=== PATIENT | male | born 1985 | race Caucasian/White ===

== ENCOUNTER 2016-11-28 04:09 | Emergency (ER) | payer OTHER ==
[~2016-11-28] VITALS: Ht 170.2 cm; Wt 144.0 kg
[2016-11-28 04:12] VITALS: TEMP 36.7; O2SAT 93; Ht 170.2 cm; Wt 144.0 kg
[2016-11-28] MEDS ORDERED: NAPR1TAB9 PO (04:37)
[2016-11-28] MEDS ORDERED: VNTHFA/IN INH (04:38)
--- NOTE | 2016-11-28 04:45 | EMERGENCY ROOM VISIT NOTE ---
History Report prepared by [place]: Archie Lowe Under the Supervision of: Dr. Kemar Franklin M.D. First contact with patient: 04:17 Chief Complaint: WRIST PAIN Stated Complaint: PAIN IN LEFT WRIST History of Present Illness The patient is a 31 year old male who presents to the Emergency Room with complaints of persistent left wrist pain for the past 2.5 - 3 weeks. The pain is rated 5/10 in severity and is worse when grasping with the left hand. He has been wearing a splint which does help. He has not noticed any significant redness or swelling. He denies any fevers. The patient went to a [facility] urgent care clinic where he was diagnosed with tendonitis. He was told to start Naproxen which he yet to do. The patient followed up at his PCP's office, where he was prescribed Prednisone which he did not start also. 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 Source of History: patient Onset: 2.5 to 3 weeks Position: wrist (left) Symptom Intensity: 5/10 Timing: other (persistent) Modifying Factors (Worsening): other (grasping) Modifying Factors (Relieving): other (splint) Associated Symptoms: No fevers Review of Systems See HPI for pertinent positives & negatives. A total of 6 systems reviewed and were otherwise negative. Past Medical & Surgical Medical Problems: (1) Abdominal pain (2) Abdominal pain, acute (3) Asthma (4) Biliary colic (5) Bronchitis (6) Cholecystitis chronic, acute (7) Chronic back pain (8) Concussion (9) Corneal foreign body (10) Decreased hearing (11) Ingrowing toenail with infection (12) Ingrowing toenail with infection (13) Paresthesia of right upper limb (14) Paresthesia of right upper limb (15) Pneumonia (16) Puncture wound of right foot (17) Right shoulder injury (18) Right shoulder injury (19) Right shoulder injury (20) Right shoulder injury (21) Right sided abdominal pain (22) Right sided abdominal pain (23) Vomiting Family History Diabetes mellitus FHx: cancer FHx: heart disease Hypertension Social History Smoking Status: Current Every Day Smoker Alcohol Use: none Drug Use: none Marital Status: Housing Status: lives with family Occupation Status: employed Current/Historical Medications Scheduled PRN Albuterol Hfa (Ventolin Hfa), 2-4 PUFFS INH Q6H PRN for SOB/Wheezing Naproxen (Aleve), 440 MG PO Q12 PRN for Pain Allergies Coded Allergies: Aspirin (Unverified Allergy, Severe, Throat swelling, 02/17/16) Physical Exam Vital Signs Date Time Temp Pulse Resp B/P Pulse Ox O2 Delivery O2 Flow Rate FiO2 11/28/16 05:11 89 148/91 11/28/16 04:12 36.7 80 20 141/93 93 Room Air Physical Exam GENERAL: Patient is uncomfortable appearing and in mild distress. HEENT: No acute trauma, normocephalic atraumatic, mucous membranes moist, no nasal congestion, no scleral icterus. NECK: No stridor, no adenopathy, no meningismus, trachea is midline. LUNGS: No dyspnea. Clear to auscultation and equal bilaterally. No wheeze, no rhonchi. HEART: Regular rate and rhythm. No murmurs, rubs, gallops appreciated. EXTREMITIES: Tender to palpation over the left wrist at the base of the first metacarpal, mild pain with range of motion, no swelling or erythema, no other joint tenderness, distal NV intact. NEUROLOGIC: Alert and oriented, no acute motor or sensory deficits, no focal weakness, cranial nerves grossly intact. SKIN: No rash, no jaundice, no diaphoresis. Medical Decision & Procedures Medications Administered Medications (Trade) Dose Ordered Sig/Woo Route Start Time Stop Time Status Last Admin Dose Admin Famotidine (Pepcid Tab) 20 mg NOW ONCE PO 11/28/16 05:00 11/28/16 05:01 DC 11/28/16 05:07 20 MG Prednisone (PredniSONE TAB) 60 mg STK-MED ONCE .ROUTE 11/28/16 05:11 11/28/16 05:12 DC 11/28/16 05:07 60 MG ED Course 0420: The patient was evaluated by my resident, Dr. Giovani Gilliland. 0440: The patient was evaluated in room B9. A complete history and physical exam was performed. 0500: Famotidine 20 mg PO, Prednisone 60 mg PO. 0500: Dr. Gilliland discussed the discharge instructions with the patient. Medical Decision Differential: Fracture, Dislocation, Cellulitis, Septic Joint, Ligamentous Injury, Effusion, DVT, amongst other pathologies entertained. 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 Has yet to start anti-inflammatories prescribed to him. Left work due to pain he is having. No evidence septic joint nor infection at this time. Exam consistent with policis tendon inflammation. Advised he should be taking his daily anti-acid, especially if on prednisone with his GERD history. Discussed symptoms requiring RTED. Off work next 72 hours to try and let inflammation go down and stressed taking his prednisone. Impression Primary Impression: Wrist pain, left Scribe Attestation The scribe's documentation has been prepared under my direction and personally reviewed by me in its entirety. I confirm that the note above accurately reflects all work, treatment, procedures, and medical decision making performed by me. Departure Information Dispostion Home / Self-Care Referrals Nasir Ward M.D. (PCP) Forms HOME CARE DOCUMENTATION FORM, IMPORTANT VISIT INFORMATION, WORK / SCHOOL INSTRUCTIONS Patient Instructions My [facility]
[2016-11-28] MEDS ORDERED: FAMOTIDINE 20 MG TAB PO ONE (05:00)
[2016-11-28 05:11] VITALS: BP 148/91; PULSE 89
--- NOTE | 2016-11-28 05:20 | EMERGENCY ROOM VISIT NOTE ---
History First contact with patient: 04:17 (Giovani Gilliland MD) First contact with patient: 04:17 (Kemar Franklin M.D.) Chief Complaint: WRIST PAIN Stated Complaint: PAIN IN LEFT WRIST History of Present Illness The patient is a 31 year old male who presents to the Emergency Room with complaints of Left sided wrist pain x 2.5- 3 wks. Pain is worse with grasping. He denies Hx of injury. 11/17 , patient went to [facility], was diagnosed with Tendinitis and sent home with Naproxen however patient did not take the medication as of yet. Patient subsequently saw PCP for second opinion. He saw a PA who placed him on prednisone and a wrist splint, however he has not filled the prescription. Patient is requesting a doctor's note for missing work. (Giovani Gilliland MD) Review of Systems See HPI for pertinent positives & negatives. A total of 10 systems reviewed and were otherwise negative. (Giovani Gilliland MD) Past Medical/Surgical History Medical Problems: (1) Abdominal pain (2) Abdominal pain, acute (3) Asthma (4) Biliary colic (5) Bronchitis (6) Cholecystitis chronic, acute (7) Chronic back pain (8) Concussion (9) Corneal foreign body (10) Decreased hearing (11) Ingrowing toenail with infection (12) Ingrowing toenail with infection (13) Paresthesia of right upper limb (14) Paresthesia of right upper limb (15) Pneumonia (16) Puncture wound of right foot (17) Right shoulder injury (18) Right shoulder injury (19) Right shoulder injury (20) Right shoulder injury (21) Right sided abdominal pain (22) Right sided abdominal pain (23) Vomiting (Kemar Franklin M.D.) Family History Diabetes mellitus FHx: cancer FHx: heart disease Hypertension (Giovani Gilliland MD) Diabetes mellitus FHx: cancer FHx: heart disease Hypertension (Kemar Franklin M.D.) Social History Smoking Status: Current Every Day Smoker Alcohol Use: none Drug Use: none Marital Status: Housing Status: lives with family Occupation Status: employed (Giovani Gilliland MD) Current/Historical Medications Scheduled PRN Albuterol Hfa (Ventolin Hfa), 2-4 PUFFS INH Q6H PRN for SOB/Wheezing Naproxen (Aleve), 440 MG PO Q12 PRN for Pain Allergies Coded Allergies: Aspirin (Unverified Allergy, Severe, Throat swelling, 02/17/16) Physical Exam Vital Signs Date Time Temp Pulse Resp B/P Pulse Ox O2 Delivery O2 Flow Rate FiO2 11/28/16 05:11 89 148/91 11/28/16 04:12 36.7 80 20 141/93 93 Room Air (Kemar Franklin M.D.) Physical Exam GENERAL: alert, well appearing, well nourished, no distress, non-toxic EYE EXAM: normal conjunctiva, PERRL and EOM's grossly intact NECK: supple, no nuchal rigidity, no adenopathy, non-tender LUNGS: Clear to auscultation. Normal chest wall mechanics HEART: no murmurs, S1 normal and S2 normal ABDOMEN: abdomen soft, non-tender, normo-active bowel sounds, no masses, no rebound or guarding. SKIN: no rashes and no bruising UPPER EXTREMITIES: Left hand, tenderness at abductor pollicis longus insertion , tenderness with finger flexion, ulnar/radial deviation, wrist flexion/ extension grasping, no erythema, no swelling LOWER EXTREMITIES: No pitting edema. NEURO EXAM: Normal sensorium, cranial nerves II-XII grossly intact, normal speech, no gross weakness of arms, no gross weakness of legs. 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 Wrist pain -likely secondary to tendonitis -previously prescribed prednisone, naproxen but did not start either medication -Given dose of Prednisone 60 mg PO -Given Pepcid to prevent dyspepsia -Provided physician's note for employer -Patient was discharged home and advised to start home prednisone prescription and naproxen as needed (Giovani Gilliland MD) Resident Physician Supervision Note: Dr. Giovani Gilliland was resident physician during care of patient. I separately evaluated patient and did history and exam. I discussed the case with the resident and generally agree with the findings and plan. Please see my full note on the chart for my complete H&P and assessment. Kemar Franklin MD (Kemar Franklin M.D.) Impression Primary Impression: Wrist pain, left Departure Information Dispostion Home / Self-Care Condition GOOD Forms HOME CARE DOCUMENTATION FORM, Work Instructions, Additional Instructions: PLease excuse on 11/28, 11/29, 11/30. Thank you, Giovani Gilliland M.D. IMPORTANT VISIT INFORMATION Patient Instructions My [facility] Additional Instructions -Take medication as prescribed -Continue wearing wrist splint -Follow up with PCP for ongoing care -Return to Emergency or call clinic if symptoms worsen or do not respond to medication. Work Instructions Additional Work Instructions: PLease excuse on 11/28, 11/29, 11/30. Thank you, Giovani Gilliland M.D. (Giovani Gilliland MD) Resident Tracking Resident Involvement: Resident Care Provided Care Provided: Adult ED (Giovani Gilliland MD)
== END 2016-11-28 05:11 | disposition home or self-care (01) ==
LOC: C.EDB 04:10
DX: M25.532 Pain in left wrist (principal); J45.909 Unspecified asthma, uncomplicated; G89.29 Other chronic pain; F17.200 Nicotine dependence, unspecified, uncomplicated; Z87.820 Personal history of traumatic brain injury; Z87.19 Personal history of other diseases of the digestive system; Z79.82 Long term (current) use of aspirin; Z83.3 Family history of diabetes mellitus; Z80.9 Family history of malignant neoplasm, unspecified; Z82.49 Family history of ischemic heart disease and other diseases of the circulatory system

== ENCOUNTER 2017-03-13 17:53 | Emergency (ER) | payer OTHER ==
[~2017-03-13] VITALS: Ht 170.2 cm; Wt 144.8 kg
[~2017-03-13 17:53] MED LIST: NAPR1TAB9 PO; VNTHFA/IN INH
[2017-03-13 17:55] VITALS: TEMP 36.7; Ht 170.2 cm; Wt 144.8 kg
--- NOTE | 2017-03-13 19:03 | DIAGNOSTIC IMAGING REPORT ---
CHEST ONE VIEW PORTABLE CLINICAL HISTORY: left side chest pain COMPARISON STUDY: 04/05/2014 FINDINGS: The heart is mildly enlarged. There is mild interstitial thickening with a basilar predominance. There is no lobar consolidation. There are no pleural effusions. There is no pneumothorax.[ IMPRESSION: Mild cardiomegaly with mild basilar interstitial thickening. No evidence of lobar consolidation Electronically signed by: Sebastian Rucker M.D. 03/13/2017 7:01 PM Dictated Date/Time: 03/13/2017 7:00 PM
[2017-03-13 19:08] LABS: URINE APPEARANCE TURBID (CLEAR); URINE BILIRUBIN NEG (NEG); URINE COLOR YELLOW; URINE EPITHELIAL CELL AUTO >30 /lpf (0-5); URINE NITRITE NEG (NEG); URINE SPECIFIC GRAVITY 1.026 (1.000-1.030); UROBILINOGEN NEG (NEG); ZZUR CULT IF INDIC CLEAN CATCH NO
[2017-03-13 19:13] LABS: MANUAL MICROSCOPIC REQUIRED? NO; REVIEW REQ? NO
[2017-03-13 19:13] LABS: PROTHROMBIN TIME (PATIENT) 10.7 SECONDS (9.0-12.0)
[2017-03-13 19:18] LABS: BLOOD UREA NITROGEN 13 mg/dl (7-18); BUN/CREATININE RATIO 14.7 (10-20); CALCIUM 9.2 mg/dl (8.5-10.1); CARBON DIOXIDE 30 mmol/L (21-32); CHLORIDE 107 mmol/L (98-107); CREATININE 0.88 mg/dl (0.60-1.40); GLUCOSE 86 mg/dl (70-99); POTASSIUM 4.2 mmol/L (3.5-5.1); SODIUM 140 mmol/L (136-145); URIC ACID 6.1 mg/dl (2.6-7.2)
[2017-03-13 19:23] LABS: BASO % 0.5 %; BASO ABS # 0.04 K/uL (0-0.2); COMPLETE YES; EOS % 10.5 %; HEMATOCRIT 45.7 % (42-52); IG% 0.3 %; LYMPH % 34.9 %; MEAN CELL VOLUME 88.7 fL (80-100); MEAN CORPUSCULAR HEMOGLOBIN 29.3 pg (25-34); MEAN PLATELET VOLUME 10.2 fL (7.4-10.4); MONO % 7.4 %; NEUT % 46.4 %; PLATELET COUNT 283 K/uL (130-400); RED BLOOD COUNT 5.15 M/uL (4.7-6.1); WHITE BLOOD COUNT 7.73 K/uL (4.8-10.8)
[2017-03-13 19:26] LABS: ALB/GLOB RATIO 0.9 (0.9-2); ALKALINE PHOSPHATASE 116 U/L (45-117); ALT/SGPT 39 U/L (12-78); AST/SGOT 18 U/L (15-37); CKMB/CK RATIO 1.1 (0-3.0)
--- NOTE | 2017-03-13 19:40 | DIAGNOSTIC IMAGING REPORT ---
ULTRASOUND VENOUS DOPPLER LWR EXT BILA CLINICAL HISTORY: Bilateral lower extremity pain and swelling COMPARISON STUDY: No previous studies for comparison. FINDINGS: Real-time and color flow Doppler imaging were performed. Flow was seen within the femoral, popliteal and calf veins with no intraluminal thrombus demonstrated. The saphenous vein is patent. IMPRESSION: No evidence of lower extremity DVT. Electronically signed by: Sebastian Rucker M.D. 03/13/2017 7:39 PM Dictated Date/Time: 03/13/2017 7:39 PM
--- NOTE | 2017-03-13 19:55 | EMERGENCY ROOM VISIT NOTE ---
History First contact with patient: 18:17 Chief Complaint: EDEMA TO EXTREMITY Stated Complaint: SORE, SWOLLEN ANKLES, RASH ON BILATERAL LEGS History of Present Illness The patient is a 31 year old male who presents to the Emergency Room with complaints of leg pain and swelling. The patient states that he works at the [place] and is on his feet all day. He states that approximately 1.5 weeks ago he noticed swelling and a rash to the left leg. He states the rash was itchy and he applied calamine lotion. He states he noticed a rash to the right leg approximately one week ago. He states that when the rash is at its worst it is bright, red and warm and itchy. The patient states that the redness has slightly improved but his ankle seemed to be swollen. The left is more swollen than right. He rates his discomfort a 3/10. He states that he has also had some left-sided chest wall pain. He states he attributes this to smoking. He has had some shortness of breath. He denies any fevers. He denies any earache , sore throat or cough. He denies chest pain. He denies any abdominal pain, nausea or vomiting. He denies any personal or family history of DVT or PE. Review of Systems A 10 system review of systems was completed with positives and pertinent negatives listed in the HPI. Past Medical/Surgical History Medical Problems: (1) Abdominal pain (2) Abdominal pain, acute (3) Asthma (4) Biliary colic (5) Bronchitis (6) Cholecystitis chronic, acute (7) Chronic back pain (8) Concussion (9) Corneal foreign body (10) Decreased hearing (11) Ingrowing toenail with infection (12) Ingrowing toenail with infection (13) Paresthesia of right upper limb (14) Paresthesia of right upper limb (15) Pneumonia (16) Puncture wound of right foot (17) Right shoulder injury (18) Right shoulder injury (19) Right shoulder injury (20) Right shoulder injury (21) Right sided abdominal pain (22) Right sided abdominal pain (23) Vomiting Family History Diabetes mellitus FHx: cancer FHx: heart disease Hypertension Social History Smoking Status: Current Every Day Smoker Alcohol Use: none Drug Use: none Marital Status: Housing Status: lives with family Occupation Status: employed Current/Historical Medications Scheduled Cephalexin Monohydrate (Keflex), 500 MG PO QID Scheduled PRN Albuterol Hfa (Ventolin Hfa), 2-4 PUFFS INH Q6H PRN for SOB/Wheezing Naproxen (Aleve), 440 MG PO Q12 PRN for Pain Physical Exam Vital Signs Date Time Temp Pulse Resp B/P (MAP) Pulse Ox O2 Delivery O2 Flow Rate FiO2 03/13/17 20:23 60 18 127/79 96 03/13/17 20:21 60 18 127/79 96 Room Air 03/13/17 17:55 36.7 80 20 140/92 94 Room Air Physical Exam VITALS: Vitals are noted on the nurse's note and reviewed by myself. Vital signs stable. GENERAL: This is a 31-year-old male, in no acute distress, nondiaphoretic, well- developed well-nourished. SKIN: There is bilateral lower extremity edema, left greater than right. It is approximately 2+ pitting edema in the left ankle. There is very faint erythema to the left lower extremity. There is no significant calf tenderness or palpable cord. Capillary reflex less than 2 seconds. HEAD: Normocephalic atraumatic. EARS: The external ears are normal in appearance. EYES: Pupils equal round and reactive to light and accommodation. Conjunctivae without injection, sclerae without icterus. Extraocular movements intact. NOSE: Patent, turbinates without inflammation or discharge. MOUTH: Mucous membranes moist. Tonsils are not enlarged. Pharynx without erythema or exudate. Uvula midline. Airway patent. Tongue does not deviate. NECK: Supple without nuchal rigidity. No lymphadenopathy. No thyromegaly. Cervical spine is nontender. No JVD. HEART: Regular rate and rhythm without murmurs gallops or rubs. LUNGS: Clear to auscultation bilaterally without wheezes, rales or rhonchi. No retractions or accessory muscle use. MUSCULOSKELETAL: Full range of motion without joint tenderness in all extremities. No tenderness to palpation. Normal gait. Strength 5/5 throughout. NEURO: Patient was alert and oriented to person place and time. No focal neurological deficits. Medical Decision & Procedures ER Provider Diagnostic Interpretation: CHEST ONE VIEW PORTABLE CLINICAL HISTORY: left side chest pain COMPARISON STUDY: 04/05/2014 FINDINGS: The heart is mildly enlarged. There is mild interstitial thickening with a basilar predominance. There is no lobar consolidation. There are no pleural effusions. There is no pneumothorax.[ IMPRESSION: Mild cardiomegaly with mild basilar interstitial thickening. No evidence of lobar consolidation ULTRASOUND VENOUS DOPPLER LWR EXT BILA CLINICAL HISTORY: Bilateral lower extremity pain and swelling COMPARISON STUDY: No previous studies for comparison. FINDINGS: Real-time and color flow Doppler imaging were performed. Flow was seen within the femoral, popliteal and calf veins with no intraluminal thrombus demonstrated. The saphenous vein is patent. IMPRESSION: No evidence of lower extremity DVT. Laboratory Results 03/13/17 18:41 Red Blood Count 5.15, Mean Corpuscular Volume 88.7, Mean Corpuscular Hemoglobin 29.3, Mean Corpuscular Hemoglobin Concent 33.0, Mean Platelet Volume 10.2, Neutrophils (%) (Auto) 46.4, Lymphocytes (%) (Auto) 34.9, Monocytes (%) (Auto) 7.4, Eosinophils (%) (Auto) 10.5, Basophils (%) (Auto) 0.5, Neutrophils # (Auto ) 3.59, Lymphocytes # (Auto) 2.70, Monocytes # (Auto) 0.57, Eosinophils # (Auto ) 0.81, Basophils # (Auto) 0.04 03/13/17 18:40 Test 03/13/17 18:40 03/13/17 18:41 Urine Color YELLOW Urine Appearance TURBID (CLEAR) Urine pH 8.0 (4.5-7.5) Urine Specific Tyler 1.026 (1.000-1.030) Urine Protein NEG (NEG) Urine Glucose (UA) NEG (NEG) Urine Ketones NEG (NEG) Urine Occult Blood NEG (NEG) Urine Nitrite NEG (NEG) Urine Bilirubin NEG (NEG) Urine Urobilinogen NEG (NEG) Urine Leukocyte Esterase NEG (NEG) Urine WBC (Auto) 1-5 /hpf (0-5) Urine RBC (Auto) 0-4 /hpf (0-4) Urine Hyaline Casts (Auto) 1-5 /lpf (0-5) Urine Epithelial Cells (Auto) >30 /lpf (0-5) Urine Bacteria (Auto) NEG (NEG) Anion Gap 3.0 mmol/L (3-11) Est Creatinine Clear Calc Drug Dose 164.8 ml/min Estimated GFR () 130.8 Estimated GFR (Non- 112.9 BUN/Creatinine Ratio 14.7 (10-20) Uric Acid 6.1 mg/dl (2.6-7.2) Calcium Level 9.2 mg/dl (8.5-10.1) Total Bilirubin 0.2 mg/dl (0.2-1) Aspartate Amino Transf (AST/SGOT) 18 U/L (15-37) Alanine Aminotransferase (ALT/SGPT) 39 U/L (12-78) Alkaline Phosphatase 116 U/L (45-117) Total Creatine Kinase 148 U/L (39-308) Creatine Kinase MB 1.7 ng/ml (0.5-3.6) Creatine Kinase MB Ratio 1.1 (0-3.0) Troponin I < 0.015 ng/ml (0-0.045) C-Reactive Protein 2.20 mg/dl (0-0.29) Total Protein 7.4 gm/dl (6.4-8.2) Albumin 3.5 gm/dl (3.4-5.0) Globulin 3.9 gm/dl (2.5-4.0) Albumin/Globulin Ratio 0.9 (0.9-2) White Blood Count 7.73 K/uL (4.8-10.8) Red Blood Count 5.15 M/uL (4.7-6.1) Hemoglobin 15.1 g/dL (14.0-18.0) Hematocrit 45.7 % (42-52) Mean Corpuscular Volume 88.7 fL (80-100) Mean Corpuscular Hemoglobin 29.3 pg (25-34) Mean Corpuscular Hemoglobin Concent 33.0 g/dl (32-36) Platelet Count 283 K/uL (130-400) Mean Platelet Volume 10.2 fL (7.4-10.4) Neutrophils (%) (Auto) 46.4 % Lymphocytes (%) (Auto) 34.9 % Monocytes (%) (Auto) 7.4 % Eosinophils (%) (Auto) 10.5 % Basophils (%) (Auto) 0.5 % Neutrophils # (Auto) 3.59 K/uL (1.4-6.5) Lymphocytes # (Auto) 2.70 K/uL (1.2-3.4) Monocytes # (Auto) 0.57 K/uL (0.11-0.59) Eosinophils # (Auto) 0.81 K/uL (0-0.5) Basophils # (Auto) 0.04 K/uL (0-0.2) RDW Standard Deviation 46.1 fL (36.4-46.3) RDW Coefficient of Variation 14.2 % (11.5-14.5) Immature Granulocyte % (Auto) 0.3 % Immature Granulocyte # (Auto) 0.02 K/uL (0.00-0.02) Erythrocyte Sedimentation Rate 31 mm/hr (0-14) Prothrombin Time 10.7 SECONDS (9.0-12.0) Prothromb Time International Ratio 1.0 (0.9-1.1) Activated Partial Thromboplast Time 26.7 SECONDS (21.0-31.0) Partial Thromboplastin Ratio 1.0 D-Dimer 340 ug/L FEU (0-500) Medications Administered Medications (Trade) Dose Ordered Sig/Woo Route Start Time Stop Time Status Last Admin Dose Admin Cephalexin Monohydrate (Keflex 500MG Home Pack) 1 homepack NOW ONCE PO 03/13/17 20:15 03/13/17 20:16 DC 03/13/17 20:24 1 HOMEPACK ECG Indication: chest pain Rate (beats per minute): 59 Rhythm: sinus bradycardia Findings: no acute ischemic change Change: no significant change ED Course The patient was seen and examined. Previous visits were reviewed. The patient does not have a fever or leukocytosis. He does not have any significant electrolyte abnormalities. ESR is mildly elevated at 31 and CRP is elevated at 2.2. He does not have any significant electrolyte abnormality. Troponin was not elevated. Her is not elevated. Chest x-ray reveals mild cardiomegaly. Ultrasound the bilateral lower extremities is negative for DVT The patient presents to the emergency department with lower extremity edema and erythema. I do not suspect pulmonary embolus or DVT at this time. The patient recently started new job in which he is on his feet all day. This may be contributing to the lower extremity edema. He does have some erythema and warmth. He will be started on Keflex for potential cellulitis. He should follow-up with his family doctor next week for recheck, further evaluation and management. He should return with any worsening symptoms, worsening redness, fevers. The case was discussed with Dr. Frost who agrees with the assessment and treatment plan Medical Decision DIFFERENTIAL DIAGNOSIS: Aortic dissection, myocarditis, pericarditis, cervical disc disease, costochondritis, herpes zoster, rib fracture, pleuritis, pneumonia , pulmonary embolus, tension pneumothorax, anxiety disorder, somatoform disorder , choledocholithiasis, status, esophagitis, esophageal spasm, esophageal reflux , esophageal rupture, pancreatitis, peptic ulcer disease, cardiac ischemia, ST elevation CT, acute coronary syndrome, arrhythmia, coronary artery vasospasm. vavular heart disease, coronary artery disease, among others. Medication Reconcilliation Current Medication List: was personally reviewed by me Blood Pressure Screening Patient's blood pressure: Normal blood pressure Blood pressure disposition: Did not require urgent referral Impression Primary Impression: Leg pain Additional Impression: Cellulitis Departure Information Dispostion Home / Self-Care Condition [employer] Prescriptions Cephalexin Monohydrate (Keflex) 500 Mg Cap 500 MG PO QID for 7 Days, #28 CAP Prov: Christin Pagan PA-C 03/13/17 Referrals Nasir Ward M.D. (PCP) Forms HOME CARE DOCUMENTATION FORM, IMPORTANT VISIT INFORMATION, WORK / SCHOOL INSTRUCTIONS Patient Instructions Cellulitis - [facility], [facility] Additional Instructions Keflex as prescribed until finished Return with worsening symptoms, worsening redness, swelling, fevers Otherwise, recheck with your family doctor next week Work Instructions Return To Work: 2 days Problem Qualifiers Primary Impression: Leg pain Laterality: bilateral Qualified Codes: M79.604 - Pain in right leg; M79.605 - Pain in left leg Additional Impression: Cellulitis Site of cellulitis: extremity Site of cellulitis of extremity: lower extremity Laterality: left Qualified Codes: L03.116 - Cellulitis of left lower limb
[2017-03-13] MEDS ORDERED: CEPH500C PO (20:04)
[2017-03-13] MEDS ORDERED: CEPHALEXIN 500MG HOME PACK 1 EA BTL PO ONE (20:15)
[2017-03-13 20:23] VITALS: BP 127/79; PULSE 60; O2SAT 96
== END 2017-03-13 20:23 | disposition home or self-care (01) ==
LOC: C.EDB 17:55 → C.EDD 20:23
DX: M79.604 Pain in right leg (principal); L03.115 Cellulitis of right lower limb; R00.1 Bradycardia, unspecified; J45.909 Unspecified asthma, uncomplicated; Z87.820 Personal history of traumatic brain injury; G89.29 Other chronic pain; F17.200 Nicotine dependence, unspecified, uncomplicated; Z83.3 Family history of diabetes mellitus; Z80.9 Family history of malignant neoplasm, unspecified; Z82.49 Family history of ischemic heart disease and other diseases of the circulatory system

== ENCOUNTER 2017-04-20 12:39 | Emergency (ER) | payer OTHER ==
[~2017-04-20] VITALS: Ht 170.2 cm; Wt 139.0 kg
[2017-04-20 12:42] VITALS: BP 160/110; PULSE 79; TEMP 36.8; O2SAT 97; Ht 170.2 cm; Wt 139.0 kg
== END 2017-04-20 14:15 | disposition left against medical advice (07) ==
LOC: C.EDB 12:40
DX: R51 Headache (principal); R42 Dizziness and giddiness; R11.2 Nausea with vomiting, unspecified; R10.9 Unspecified abdominal pain

== ENCOUNTER 2017-07-31 11:53 | Emergency (ER) | payer OTHER ==
[~2017-07-31] VITALS: Ht 170.2 cm; Wt 132.0 kg
[2017-07-31 11:56] VITALS: TEMP 36.8; Ht 170.2 cm; Wt 132.0 kg
--- NOTE | 2017-07-31 13:35 | DIAGNOSTIC IMAGING REPORT ---
THORACIC SPINE 3 VIEWS ROUTINE HISTORY: Pain LEFT MID BACK/SCAPULAR PAIN COMPARISON: None. FINDINGS: Slight wedge deformity T11 considered old. No subluxation. Mild degenerative disc changes throughout. Mild osteopenia. IMPRESSION: 1. Slight wedge deformity T11 considered old.. 2. Mild degenerative disc change throughout the entire thoracic region. The above report was generated using voice recognition software. It may contain grammatical, syntax or spelling errors. Electronically signed by: Dhaval Landeros M.D. 07/31/2017 1:34 PM Dictated Date/Time: 07/31/2017 1:33 PM
--- NOTE | 2017-07-31 13:38 | DIAGNOSTIC IMAGING REPORT ---
L RIBS UNILATERAL WITH PA CHEST CLINICAL HISTORY: Left-sided rib pain. COMPARISON STUDY: Chest radiograph March 13, 2017. FINDINGS: No pneumothorax or pleural effusion is present. Lungs are clear. Cardiomediastinal silhouette is normal. Pulmonary vascularity is normal. There are no acute left rib fractures. IMPRESSION: No pneumothorax. No acute left rib fractures. Electronically signed by: Dick Ram M.D. 07/31/2017 1:37 PM Dictated Date/Time: 07/31/2017 1:33 PM
[2017-07-31] MEDS ORDERED: CYCL10TA6 PO (13:47)
--- NOTE | 2017-07-31 13:47 | EMERGENCY ROOM VISIT NOTE ---
ED Visit Note First contact with patient: 12:08 CHIEF COMPLAINT: Mid back pain 2 years worse 1 month HISTORY OF PRESENT ILLNESS: Patient is a right-hand dominant 32-year-old white male who presents the emergency department for evaluation of left mid back pain. He has had pain for 2 years. He describes it as a cramping sensation around his left shoulder blade. Initially it only came on him when he was active, and when it was cold. It would go away, then returned. In the last month, he notes the pain is more constant, again is worse with activity, and now it hurts more with pressure when he lays on his back or on his left side. He states that it is located between his left shoulder blade in his spine, wraps around the underside of his shoulder blade towards his left side. It does not radiate into his chest. He denies any anterior chest pain, shortness of breath. He has a chronic cough from smoking. He denies any pleuritic component to the pain. There is no injury to the area that he is aware of. He has tried ice, heat, massage, stretching, and taking Aleve on occasion. He denies any symptoms in the right side. He does not have any midline neck, mid back or low back pain. No urinary symptoms. REVIEW OF SYSTEMS: Review of systems as per HPI. All other systems reviewed were negative. At least 6 systems reviewed. PMH: Electronic medical records are reviewed and summarized as above/below. See Problem List. SOCIAL HISTORY: Patient lives at homeith his family. 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 He smokes one pack of cigarettes daily. PHYSICAL EXAM: Vital Signs: Reviewed Nurse's notes. MENTAL STATUS: Well- appearing 32-year-old white male who is awake and alert and in no acute distress. HEART: Regular rate and rhythm LUNGS: Clear to auscultation SPINE: Examination of the patient's back show normal cervical and lumbar lordosis, thoracic kyphosis. No curvature consistent with scoliosis. He does not have any pain over the spinous processes of the cervical or thoracic spine. He does have some left thoracic paraspinous muscle tenderness without spasm, reproducible on exam. Full range of motion of the neck, mid and low back. Normal gait, upper and lower extremity DTRs are equal and symmetrical bilaterally. Ribs are nontender to palpation. NEUROLOGICAL: Alert, oriented, coherent. PRERL, moves all extremeties well, sensation to touch intact everywhere. CHEST: Non-tender, symmetrical, no retractions. BACK: No tenderness. EMERGENCY DEPARTMENT COURSE: The patient was seen and evaluated as above. He presents with thoracic left-sided back pain that has been several years in duration, worse in the last couple of weeks. There is no pleuritic component, it is reproducible on exam, and therefore felt to be musculoskeletal in nature, as opposed to thoracic or pulmonary. He does not have any radicular symptoms. Chest with rib and thoracic spine x-rays were obtained, and were negative for acute fracture or bony abnormality. Differential diagnoses entertained included thoracic strain, intercostal neuritis, shingles, muscle strain, among others. He was encouraged to apply heat, continue an NSAID, and to take Flexeril as needed for spasms. He was advised to follow-up with his primary care provider for further care and evaluation, as he may benefit from physical therapy or rn medicare. He was discharged home in good condition. Medication reconciliation: I attest that I have personally reviewed the patient' s current medication list. Blood pressure screening : Patient was found to have normal blood pressure on screening and does not require follow-up. L RIBS UNILATERAL WITH PA CHEST CLINICAL HISTORY: Left-sided rib pain. COMPARISON STUDY: Chest radiograph March 13, 2017. FINDINGS: No pneumothorax or pleural effusion is present. Lungs are clear. Cardiomediastinal silhouette is normal. Pulmonary vascularity is normal. There are no acute left rib fractures. IMPRESSION: No pneumothorax. No acute left rib fractures. THORACIC SPINE 3 VIEWS ROUTINE HISTORY: Pain LEFT MID BACK/SCAPULAR PAIN COMPARISON: None. FINDINGS: Slight wedge deformity T11 considered old. No subluxation. Mild degenerative disc changes throughout. Mild osteopenia. IMPRESSION: 1. Slight wedge deformity T11 considered old.. 2. Mild degenerative disc change throughout the entire thoracic region. Problem List Medical Problems: (1) Abdominal pain Status: Resolved (2) Abdominal pain, acute Status: Resolved (3) Asthma Status: Chronic (4) Biliary colic Status: Resolved (5) Bronchitis Status: Resolved (6) Cellulitis Status: Resolved (7) Cholecystitis chronic, acute Status: Resolved (8) Chronic back pain Status: Chronic (9) Concussion Status: Resolved (10) Conjunctivitis, right eye Status: Resolved (11) Corneal foreign body Status: Resolved (12) Decreased hearing Status: Resolved (13) Eczema of both hands Status: Resolved (14) Impetigo Status: Resolved (15) Ingrowing toenail with infection Status: Resolved (16) Ingrowing toenail with infection Status: Resolved (17) Leg pain Status: Resolved (18) Paresthesia of right upper limb Status: Resolved (19) Paresthesia of right upper limb Status: Resolved (20) Pneumonia Status: Resolved (21) Puncture wound of right foot Status: Resolved (22) Right shoulder injury Status: Resolved (23) Right shoulder injury Status: Resolved (24) Right shoulder injury Status: Resolved (25) Right shoulder injury Status: Resolved (26) Right sided abdominal pain Status: Resolved (27) Right sided abdominal pain Status: Resolved (28) Vomiting Status: Resolved (29) Wrist pain, left Status: Resolved (30) Wrist pain, left Status: Resolved Surgical Problems: (1) History of cholecystectomy Status: Resolved Current/Historical Medications Scheduled PRN Albuterol Hfa (Ventolin Hfa), 2-4 PUFFS INH Q6H PRN for SOB/Wheezing Cyclobenzaprine Hcl (Flexeril), 10 MG PO TID PRN for Muscle Spasms Naproxen (Aleve), 440 MG PO Q12 PRN for Pain Allergies Coded Allergies: Aspirin (Unverified Allergy, Severe, Throat swelling, 07/31/17) Vital Signs Date Time Temp Pulse Resp B/P (MAP) Pulse Ox O2 Delivery O2 Flow Rate FiO2 07/31/17 14:06 64 18 140/87 96 Room Air 07/31/17 11:56 36.8 80 18 147/89 97 Room Air Departure Information Impression Primary Impression: Left-sided thoracic back pain Prescriptions Cyclobenzaprine Hcl (FLEXERIL) 10 Mg Tab 10 MG PO TID Y for Muscle Spasms, #20 TAB Prov: Mckayla Perdomo PA 07/31/17 Referrals Nasir Ward M.D. (PCP) Patient Instructions [facility] Additional Instructions Cyclobenzaprine (Flexeril) 10 mg: Take 1 pills 3 times daily as needed for muscle spasms.. Avoid alcohol, operating machinery or dangerous equipment, working on ladders or roofs, DRIVING, or situations where being under the influence may be dangerous. Ibuprofen(Motrin, Advil) may be used for fever or pain. Use 600mg every six hours as needed. Take with food. Avoid using more than 2400mg in a 24 hour period. Do not use 2400mg per day for more than three consecutive days without physician direction. Prolonged inappropriate use can lead to stomach upset or ulcers. This medication can be taken if you need to drive, work, or perform activities which may be dangerous when taking narcotic pain medication. (AND/OR) Acetaminophen(Tylenol) may be used for fever or pain. Use 1000mg every six hours as needed. Avoid using more than 3000mg in a 24 hour period. This medication can be taken if you need to drive, work, or perform activities which may be dangerous when taking narcotic pain medication. Rest and avoid heavy lifting until your symptoms resolve and then gradually return to full activity. A good rule of thumb is if it hurts your back to perform a certain activity, then it should be avoided until you are healthy again. A heating pad, warm compresses, or a hot shower may help with tight muscles and can be done several times a day as needed. Continue current medications. Return to the ER immediately for any numbness, tingling, severe pain, loss of control of your bowels or bladder, inability to walk, or as needed. Follow up with your primary care physician within 3-5 days for a recheck of your current condition.
[2017-07-31 14:06] VITALS: BP 140/87; PULSE 64; O2SAT 96
== END 2017-07-31 14:10 | disposition home or self-care (01) ==
LOC: C.EDB 11:53 → C.EDD 14:10
DX: M54.6 Pain in thoracic spine (principal); J45.909 Unspecified asthma, uncomplicated; F17.210 Nicotine dependence, cigarettes, uncomplicated; Z87.820 Personal history of traumatic brain injury; Z87.01 Personal history of pneumonia (recurrent); Z90.49 Acquired absence of other specified parts of digestive tract